=== PATIENT | female | born 1965 | race Caucasian/White ===

== ENCOUNTER 2018-06-27 12:29 | Day surgery (SDC) | payer BC, OTHER ==
[~2018-06-27] VITALS: Ht 160 cm; Wt 73.5 kg
[2018-06-27 13:22] VITALS: Ht 160 cm; Wt 73.5 kg
[2018-06-27] MEDS ORDERED: FERROUS SULFATE (13:29)
[2018-06-27] MEDS ORDERED: INHALER (13:29)
[2018-06-27] MEDS ORDERED: MIDAZOLAM 1 MG/ML 2 ML INJ ONE ×2 (14:14)
[2018-06-27] MEDS ORDERED: FENTAnyl 50 MCG/ML VIAL ONE (14:14)
--- NOTE | 2018-06-28 06:15 | CONS ---
DATE OF ADMISSION: 06/27/2018 DATE OF CONSULTATION: TYPE OF CONSULTATION: Preoperative gastroenterology. I thank you very much for this kind referral. HISTORY OF PRESENT ILLNESS: Ms. Anastacia Francis is a 52-year-old female patient who has been referred to me for further evaluation of positive occult blood in stool. The patient has also noticed a barry e in the bowel habit and she has iron deficiency anemia. No past history of colon neoplasm. Her jesus etite has been good. No weight loss. No upper abdominal pain. Not on nonsteroidal anti-inflammator y agents. PAST MEDICAL HISTORY: Status post cholecystectomy. Has history of fatty liver. Not a hypertensive or diabetic. No heart disease. Has bronchial asthma. No kidney disease. SOCIAL HISTORY: Nonsmoker. No alcohol abuse. FAMILY HISTORY: No family history of gastrointestinal tract neoplasm. ALLERGIES: NO DRUG ALLERGIES. MEDICATIONS: 1. Ferrous sulfate. 2. Inhaler for bronchial asthma. PHYSICAL EXAMINATION: VITAL SIGNS: She is 5 feet 3 inches tall and weighs 163 pounds. HEART: Normal heart sounds. LUNGS: Clear. ABDOMEN: Soft. No masses. Normal bowel sounds. NEUROLOGIC: Normal. IMPRESSION: 1. Positive occult blood in stool. 2. Change in the bowel habit. 3. The patient never had screening colonoscopy. 4. Iron deficiency anemia. 5. History of fatty liver. 6. Bronchial asthma. 7. Status post cholecystectomy and hemorrhoidectomy. 8. The patient also had sections in the past. PLAN: 1. The patient was strongly advised to lose weight, have low fat diet and have a good control of ser um lipids because of the fatty liver. 2. Colonoscopy for further evaluation. The procedure and possible complications are well explained to the patient. She understands and cons ents to the procedure. I thank you once again. With warmest personal regards, Dictated By: DAVID PRADHAN/MILAD Conf#: [id number] DID#: [id number]
== END 2018-06-27 15:04 | disposition home or self-care (01) ==
LOC: GIL 12:29
PROVIDERS: ATTEND Internal Medicine Gastroenterology
DX: K64.8 Other hemorrhoids (principal); J45.909 Unspecified asthma, uncomplicated
CPT/HCPCS: 45378; 84703; J2250; J3010; Z7610